=== PATIENT | female | born 1960 | race Caucasian/White ===

== ENCOUNTER 2021-03-02 07:19 | Day surgery (SDC) | payer OTHER ==
[2021-02-25 10:36] VITALS: BMI 26.4
[~2021-03-02 07:19] MED LIST: LACTATED RINGERS 1,000 ML IV SCH; LIDOCAINE 1% (10MG/ML) FOR IV START INTRADERMA PRN
[2021-03-02 07:39] VITALS: RESP 16; TEMP 97.1
[2021-03-02] MEDS ORDERED: PROPOFOL 10 MG/ML 20 ML VIAL IV ONE (08:05)
[2021-03-02] MEDS ORDERED: LIDOCAINE 1% INJ 10MG/ML (20 ML MDV) ONE (08:05)
--- NOTE | 2021-03-02 08:07 | P.GSHP ---
History of Present Illness H&P Date: 03/02/21 Chief Complaint: Colon cancer screening Patient here today for colonoscopy. Last colonoscopy was normal approximately 10 years ago. No bowel complaints. No family history of cancer. Past Medical History Past Medical History: Cancer, GERD/Reflux, Skin Disorder Additional Past Medical History / Comment(s): hx skin cancer History of Any Multi-Drug Resistant Organisms: None Reported Past Surgical History: Adenoidectomy, Section, Tonsillectomy, Tubal Ligation Additional Past Surgical History / Comment(s): oophorectomy, meningioma tumor removed, cyst removed from finger Past Anesthesia/Blood Transfusion Reactions: No Reported Reaction Smoking Status: Former smoker - Past Family History Mother Family Medical History: No Reported History Medications and Allergies Home Medications Medication Instructions Recorded Confirmed Type Vitamin D (Unkn Dose) 2 cap PO DAILY 02/25/21 03/02/21 History Allergies Allergy/AdvReac Type Severity Reaction Status Date / Time No Known Allergies Allergy Verified 02/25/21 10:28 Surgical - Exam Vital Signs Temp Pulse Resp BP Pulse Ox 97.1 F L 76 16 143/63 97 03/02/21 07:34 03/02/21 07:34 03/02/21 07:34 03/02/21 07:34 03/02/21 07:34 Physical exam: General: Well-developed, well-nourished HEENT: Normocephalic, sclerae nonicteric Abdomen: Nontender, nondistended Extremities: No edema Neuro: Alert and oriented Assessment and Plan (1) Colon cancer screening Narrative/Plan: Will proceed with colonoscopy Current Visit: Yes Status: Acute Code(s): Z12.11 - ENCOUNTER FOR SCREENING FOR MALIGNANT NEOPLASM OF COLON SNOMED Code(s): 620653034
--- NOTE | 2021-03-02 08:24 | P.PCN ---
Date of Procedure: 03/02/21 Procedure(s) Performed: PREOPERATIVE DIAGNOSIS: Colon cancer screening POSTOPERATIVE DIAGNOSIS: Normal exam PROCEDURE: Colonoscopy ANESTHESIA: MAC SURGEON: Jean Claude Marshall M.D. SPECIMENS: None ENDOSCOPIC PROCEDURE: The patient was placed on the endoscopy table in the left decubitus position. The Olympus colonoscope was inserted into the anus and passed under direct visualization to the base of the cecum. The appendiceal orifice was visualized. From that point the scope was slowly withdrawn inspecti ng all surfaces carefully. There were no neoplastic inflammatory or polypoid lesions throughout the cecum, ascending, transverse, descending, sigmoid and rectum. There was no visible diverticulosis noted. Digital rectal examination was normal. The patient was taken to the recovery room in stable condition per anesthesia guidelines. RECOMMENDATIONS: Resume diet. Follow-up colonoscopy in 10 years.
[2021-03-02 08:50] VITALS: BP 127/74; PULSE 72
== END 2021-03-02 09:09 | disposition home or self-care (01) ==
LOC: ORWHC2ENDO 07:19
PROVIDERS: ATTEND Surgery
DX: Z12.11 Encounter for screening for malignant neoplasm of colon (principal); K21.9 Gastro-esophageal reflux disease without esophagitis; Z85.828 Personal history of other malignant neoplasm of skin; Z87.891 Personal history of nicotine dependence
CPT/HCPCS: 45378; J2001; J2704